=== PATIENT | male | born 1980 | race Caucasian/White ===

== ENCOUNTER 2021-06-23 19:22 | Emergency (ER) | payer OTHER, SELFPAY ==
[2021-06-23 19:26] VITALS: BP 130/65; PULSE 98; RESP 16; TEMP 36.3; O2SAT 97
--- NOTE | 2021-06-23 19:49 | ED.WOUNDLAC ---
HPI - Wound/Laceration General Chief Complaint: Wound/Laceration Stated Complaint: LT HAND INDEX FINGER LACERATION Time Seen by Provider: 06/23/21 19:46 Source: patient and RN notes reviewed Mode of arrival: ambulatory Limitations: no limitations History of Present Illness HPI narrative: Patient presents today with a laceration to his left second finger that was sustained just prior to arrival. He was scraping something with a metal scraper off of his 3D printer and lost his production floater. Denies numbness or tingling. Currently rates his pain 210. He is up-to-date on his tetanus vaccine. Related Data Home Medications Medication Instructions Recorded Confirmed testosterone cypionate 100 mg/mL 100 mg IM WEEKLY ml 02/18/21 04/02/21 intramuscular oil Allergies Allergy/AdvReac Type Severity Reaction Status Date / Time Penicillins Allergy Unknown Anaphylaxis Verified 09/21/18 14:15 cucumber Allergy Unknown Verified 03/18/21 07:33 Review of Systems Review of Systems: CONSTITUTIONAL: Denies body aches, fever, chills, or sweats. EYES: Denies visual changes, redness, or discharge. ENT: Denies rhinorrhea, congestion, sore throat, or otalgia. CARDIOVASCULAR: Denies chest pain, palpitations, or edema. RESPIRATORY: Denies cough or dyspnea. GASTROINTESTINAL: Denies abdominal pain, nausea, vomiting, or diarrhea. GENITOURINARY: Denies dysuria or hematuria. SKIN: Denies rash, itching. + Finger laceration MUSCULOSKELETAL: Denies back pain, joint pain, or myalgia. NEUROLOGIC: Denies headache, numbness, tingling, or weakness. PSYCH: Denies depression or anxiety. [facility] Past Medical History Medical History Ankle tendinitis Anxiety Hyperglycemia Hypertension Hypogonadism in male THERESA (obstructive sleep apnea) Peroneal tendon injury Surgery 09/2020 Family History Family History Mother Patient's mother is in good health Father Family history of cardiovascular disease Cerebrovascular accident Acute myocardial infarction Social History Social History Smoking status: Current some day smoker Tobacco type: cigarettes Alcohol intake: former Comments At time of signature, I have reviewed and agree with nursing past medical, surgical, social and family history unless otherwise noted. Please see nursing chart for further information. There is no relevant family history pertinent to the presenting complaint Exam Narrative: GENERAL: Well-appearing, well-nourished, and in no acute distress. HEAD: Normocephalic, atraumatic. EYES: EOMI. No redness or drainage. Conjunctivae normal. ENT: Mucous membranes pink and moist. NECK: Normal AROM. CHEST: No respiratory distress. EXTREMITIES: Left second finger: 2 cm partial-thickness flap laceration to the palmar aspect of the left second finger, middle phalanx. No active bleeding. Distal sensation intact. Capillary refill normal. Full range of motion against resistance. SKIN: Warm, dry, no rash. Capillary refill normal. Normal skin turgor. NEURO: No focal deficits. Alert and oriented x3. Gait steady. PSYCH: Normal affect. No signs of depression or anxiety. Course Vital Signs Vital signs: Vital Signs Temperature 97.3 F L 06/23/21 19:26 Pulse Rate 98 06/23/21 19:26 Respiratory Rate 16 06/23/21 19:26 Blood Pressure 130/65 06/23/21 19:26 Pulse Oximetry 97 06/23/21 19:26 Temperature 97.3 F L 06/23/21 19:26 Pulse Rate 98 06/23/21 19:26 Respiratory Rate 16 06/23/21 19:26 Blood Pressure 130/65 06/23/21 19:26 Pulse Oximetry 97 06/23/21 19:26 Reviewed. Pt has been instructed to follow up with his PCP regarding his elevated blood pressure today. Procedures Laceration Laceration 1: Date: 06/23/21 Time: 19:55 Site: hand Size (cm): 2
== END 2021-06-23 20:16 | disposition home or self-care (01) ==
PROVIDERS: Emergency Provider Nurse Practitioner; PCP Internal Medicine
DX: S61.211A Laceration without foreign body of left index finger without damage to nail, initial encounter (principal); W45.8XXA Other foreign body or object entering through skin, initial encounter; I10 Essential (primary) hypertension; G47.33 Obstructive sleep apnea (adult) (pediatric); F17.210 Nicotine dependence, cigarettes, uncomplicated
CPT/HCPCS: 12001; 99212; G0463

== ENCOUNTER 2022-09-28 15:59 | Outpatient (CLI) | payer OTHER, SELFPAY ==
[2022-09-28 18:59] LABS: D Dimer 0.49 ug/mL (<0.48)
== END 2022-09-28 16:00 | disposition home or self-care (01) ==
LOC: ANHGOSHLAB 16:00
PROVIDERS: PCP Internal Medicine; Visit Provider Internal Medicine
DX: R00.0 Tachycardia, unspecified (principal); Z82.49 Family history of ischemic heart disease and other diseases of the circulatory system
CPT/HCPCS: 36415; 85380

== ENCOUNTER 2022-12-02 08:56 | Outpatient (CLI) | payer OTHER, SELFPAY ==
[2022-12-02 19:25] LABS: Basophils Percent Auto 0.5 % (0.2-1.2); Eosinophils Absolute Auto 0.3 K/mm3 (0-0.3); Eosinophils Percent Auto 3.8 % (0-4.4); Hematocrit 43.9 % (42.0-52.0); Hemoglobin 14.6 g/dL (14.0-18.0); Immature Granulocyte Absolute 0.04 K/mm3 (0.00-0.031); Immature Granulocyte Percent A 0.6 % (0-0.5); Lymphocytes Absolute Auto 1.74 K/mm3 (0.9-3.2); Lymphocytes Percent Auto 26.8 % (18.3-44.2); Mean Corpuscular HGB Conc 33.3 g/dl (32-36); Mean Corpuscular Hemoglobin 29.1 pg (26-34); Mean Corpuscular Volume 87.5 fl (80-100); Mean Platelet Volume 9.5 fl (7.4-10.4); Monocytes Absolute Auto 0.6 K/mm3 (0.1-0.6); Monocytes Percent Auto 9.7 % (2.6-8.5); Neutrophils Absolute Auto 3.8 K/mm3 (1.3-6.7); Neutrophils Percent Auto 58.6 % (45.5-73.1); Platelet Count Result 344 k/mm3 (150-375); Red Blood Count 5.02 M/mm3 (4.6-6.20); Red Cell Distribution Width 13.2 % (11.5-14.5); White Blood Count 6.5 K/mm3 (4.5-10.0)
[2022-12-02 21:07] LABS: Alanine Aminotransferase 43 U/L (6-50); Albumin Level 4.7 g/dL (3.5-5.1); Alkaline Phosphatase 69 U/L (38-126); Anion Gap 9 mmol/L (8-16); Aspartate Amino Transferase 47 U/L (17-59); Bilirubin,Total 0.5 mg/dL (0.2-1.3); Blood Urea Nitrogen 17 mg/dL (9-20); Calcium 9.2 mg/dL (8.4-10.2); Carbon Dioxide 27 mmol/L (22-30); Chloride 101 mmol/L (98-107); Estimated Glomerular Filt Rate > 60; Glucose 92 mg/dL (65-110); Potassium 4.3 mmol/L (3.4-5.0); Sodium 137 mmol/L (137-145)
[2022-12-02 21:39] LABS: Prostate Specific Antigen 0.3 ng/mL (< OR = 4.0); Thyroid Stimulating Hormone 0.473 uIU/mL (0.465-4.680)
[2022-12-02 21:41] LABS: Hemoglobin A1C 5.8 % (<5.7)
[2022-12-13 16:18] LABS: Testosterone Free 37.6 pg/mL (35.0-155.0); Testosterone Total 192 ng/dL (250-1100)
== END 2022-12-02 08:57 | disposition home or self-care (01) ==
LOC: ANHGOSHLAB 08:57
PROVIDERS: PCP Internal Medicine; Visit Provider Internal Medicine
DX: E29.1 Testicular hypofunction (principal); R73.9 Hyperglycemia, unspecified; D75.1 Secondary polycythemia; I10 Essential (primary) hypertension; R00.2 Palpitations
CPT/HCPCS: 36415; 80053; 83036; 84153; 84402; 84403; 84443; 85025

== ENCOUNTER 2023-05-13 14:35 | Outpatient (CLI) | payer BC, SELFPAY ==
[2023-05-13 19:30] LABS: Basophils Absolute Auto 0.1 K/mm3 (0.0-0.1); Basophils Percent Auto 0.6 % (0.2-1.2); Eosinophils Absolute Auto 0.3 K/mm3 (0-0.3); Eosinophils Percent Auto 3.4 % (0-4.4); Hematocrit 52.6 % (42.0-52.0); Hemoglobin 16.7 g/dL (14.0-18.0); Immature Granulocyte Absolute 0.05 K/mm3 (0.00-0.031); Immature Granulocyte Percent A 0.6 % (0-0.5); Lymphocytes Percent Auto 25.4 % (18.3-44.2); Mean Corpuscular HGB Conc 31.7 g/dl (32-36); Mean Corpuscular Volume 81.8 fl (80-100); Mean Platelet Volume 9.5 fl (7.4-10.4); Monocytes Absolute Auto 1.1 K/mm3 (0.1-0.6); Monocytes Percent Auto 13.2 % (2.6-8.5); Neutrophils Absolute Auto 4.7 K/mm3 (1.3-6.7); Neutrophils Percent Auto 56.8 % (45.5-73.1); Platelet Count Result 379 k/mm3 (150-375); Red Blood Count 6.43 M/mm3 (4.6-6.20); Red Cell Distribution Width 17.6 % (11.5-14.5); White Blood Count 8.3 K/mm3 (4.5-10.0)
[2023-05-13 19:33] LABS: Alanine Aminotransferase 37 U/L (6-50); Albumin Level 4.7 g/dL (3.5-5.1); Alkaline Phosphatase 63 U/L (38-126); Anion Gap 14 mmol/L (8-16); Aspartate Amino Transferase 48 U/L (17-59); Bilirubin,Total 0.7 mg/dL (0.2-1.3); Blood Urea Nitrogen 16 mg/dL (9-20); Calcium 9.4 mg/dL (8.4-10.2); Carbon Dioxide 25 mmol/L (22-30); Chloride 98 mmol/L (98-107); Estimated Glomerular Filt Rate > 60; Glucose 101 mg/dL (65-110); Potassium 3.7 mmol/L (3.4-5.0); Sodium 137 mmol/L (137-145)
[2023-05-13 19:54] LABS: Prostate Specific Antigen 0.4 ng/mL (< OR = 4.0)
[2023-05-13 20:22] LABS: Hemoglobin A1C 5.7 % (<5.7)
[2023-05-18 11:34] LABS: Testosterone Free 117.8 pg/mL (35.0-155.0); Testosterone Total 359 ng/dL (250-1100)
== END 2023-05-13 14:36 | disposition home or self-care (01) ==
LOC: ANHGOSHLAB 14:39
PROVIDERS: PCP Internal Medicine; Visit Provider Internal Medicine
DX: R73.9 Hyperglycemia, unspecified (principal); E61.1 Iron deficiency; D75.1 Secondary polycythemia; E29.1 Testicular hypofunction; Z79.890 Hormone replacement therapy
CPT/HCPCS: 36415; 80053; 83036; 84153; 84402; 84403; 85025

== ENCOUNTER 2023-09-07 15:12 | Outpatient (CLI) | payer BC, SELFPAY ==
[2023-09-07 19:00] LABS: Basophils Percent Auto 0.3 % (0.2-1.2); Eosinophils Absolute Auto 0.3 K/mm3 (0-0.3); Eosinophils Percent Auto 3.6 % (0-4.4); Hemoglobin 17.1 g/dL (14.0-18.0); Immature Granulocyte Absolute 0.01 K/mm3 (0.00-0.031); Immature Granulocyte Percent A 0.1 % (0-0.5); Lymphocytes Absolute Auto 2.05 K/mm3 (0.9-3.2); Lymphocytes Percent Auto 23.6 % (18.3-44.2); Mean Corpuscular HGB Conc 31.7 g/dl (32-36); Mean Corpuscular Hemoglobin 26.2 pg (26-34); Mean Corpuscular Volume 82.7 fl (80-100); Mean Platelet Volume 9.6 fl (7.4-10.4); Monocytes Absolute Auto 0.9 K/mm3 (0.1-0.6); Neutrophils Absolute Auto 5.4 K/mm3 (1.3-6.7); Neutrophils Percent Auto 62.4 % (45.5-73.1); Platelet Count Result 348 k/mm3 (150-375); Red Blood Count 6.53 M/mm3 (4.6-6.20); Red Cell Distribution Width 17.2 % (11.5-14.5); White Blood Count 8.7 K/mm3 (4.5-10.0)
[2023-09-07 19:04] LABS: Alanine Aminotransferase 38 U/L (6-50); Albumin Level 4.6 g/dL (3.5-5.1); Alkaline Phosphatase 78 U/L (38-126); Anion Gap 11 mmol/L (8-16); Aspartate Amino Transferase 48 U/L (17-59); Bilirubin,Total 0.8 mg/dL (0.2-1.3); Blood Urea Nitrogen 14 mg/dL (9-20); Calcium 9.6 mg/dL (8.4-10.2); Carbon Dioxide 26 mmol/L (22-30); Chloride 98 mmol/L (98-107); Cholesterol 143 mg/dL (0-200); Estimated Glomerular Filt Rate > 60; Glucose 89 mg/dL (65-110); HDL Direct 32 mg/dL; Potassium 3.7 mmol/L (3.4-5.0); Sodium 135 mmol/L (137-145); Triglycerides 142 mg/dL (<150)
[2023-09-07 19:15] LABS: LDL Cholesterol Direct 92 mg/dL
[2023-09-11 20:17] LABS: Apolipoprotein B 81 mg/dL (<90)
[2023-09-14 16:46] LABS: Testosterone Free 240.8 pg/mL (35.0-155.0); Testosterone Total 1070 ng/dL (250-1100)
== END 2023-09-07 15:13 | disposition home or self-care (01) ==
PROVIDERS: PCP Internal Medicine; Visit Provider Internal Medicine
DX: R73.9 Hyperglycemia, unspecified (principal); I10 Essential (primary) hypertension; E29.1 Testicular hypofunction; D75.1 Secondary polycythemia; E66.9 Obesity, unspecified; Z68.30 Body mass index [BMI] 30.0-30.9, adult; Z79.890 Hormone replacement therapy
CPT/HCPCS: 36415; 80053; 80061; 82172; 84402; 84403; 85025

== ENCOUNTER 2023-12-14 08:10 | Emergency (ER) | payer BC, SELFPAY ==
--- NOTE | 2023-12-14 08:14 | ED.URI ---
HPI - URI/Sore Throat General Chief Complaint: Upper Respiratory Infection Stated Complaint: Strep Symptoms Time Seen by Provider: 12/14/23 08:13 Source: patient Mode of arrival: ambulatory Limitations: no limitations History of Present Illness HPI Narrative: Patient is a 43-year-old male that presents with sore throat, cough and fever since Wednesday. Patient has taken an ice bath but has not taken any medication for fever. Does take a daily Claritin. Just return from [place]. Denies any nausea, vomiting, diarrhea. Related Data Home Medications Medication Instructions Recorded Confirmed aspirin 325 mg tablet 325 mg PO DAILY 01/01/22 12/14/23 metoprolol succinate 50 mg 50 mg PO DAILY 05/24/23 12/14/23 tablet,extended release 24 hr Allergies Allergy/AdvReac Type Severity Reaction Status Date / Time Penicillins Allergy Unknown Anaphylaxis Verified 12/14/23 08:19 cucumber Allergy Unknown Verified 12/14/23 08:19 Review of Systems Review of Systems: All systems reviewed & are unremarkable except as noted in HPI and below Constitutional: Constitutional: Denies body ache(s), Denies chills, Denies fatigue, Reports fever(s), Denies headache(s), Denies malaise and Denies weakness Eyes: Eyes: Denies blurry vision, Denies itchy eyes and Denies loss of vision ENT: Denies otalgia, Denies headache(s), Denies nasal congestion, Denies sinus pain and Reports sore throat Cardiovascular: Cardiovascular: Denies chest pain, Denies irregular heart rhythm and Denies dyspnea Respiratory: Respiratory: Reports cough and Denies dyspnea Gastrointestinal: Gastrointestinal: Denies abdominal pain, Denies diarrhea, Denies nausea and Denies vomiting Musculoskeletal: Musculoskeletal: Denies back pain, Denies myalgias and Denies arthralgias Integumentary/Breasts: Skin/Breast: Denies pruritus and Denies rash Neurologic: Denies headache(s), Denies loss of vision and Denies weakness Psychiatric: Psychiatric: Reports no additional psychiatric complaints Endocrine: Endocrine: Denies fatigue Allergic/Immunologic: Allergic/Immunologic: Denies itchy eyes PMFSH Past Medical History Medical History Ankle tendinitis Anxiety Hyperglycemia Hypertension Hypogonadism in male Long-term current use of testosterone cypionate THERESA (obstructive sleep apnea) Peroneal tendon injury Surgery 09/2020 Secondary erythrocytosis Family History Family History Mother Acute myocardial infarction Father Family history of cardiovascular disease Cerebrovascular accident Acute myocardial infarction Thyroid cancer Social History Social History Smoking status: Former smoker Tobacco type: cigarettes Smoking end date: 05/28/21 Alcohol intake: former Substance use: current Substance use type: marijuana Lack of Transportation: No Lack of Food: Never True Current Housing: I Have Housing Concerned About Future Housing: No Difficulty Paying Gas/Electric Bills: No Difficulty Paying for Meds: No Currently Unemployed: No Education: Master's Degree or Higher Difficulty w/ Childcare or Family Care: No Comments At time of signature, agree with nursing past medical, surgical, social and family history. There is no relevant family history pertinent to the presenting complaint. Exam Const: General: cooperative, healthy appearing, comfortable, no acute distress and well nourished Nutritional Appearance: well nourished Orientation/consciousness: patient oriented x3 Limitations: no limitations HENMT: Head: normal to inspection, normocephalic and atraumatic Ears: hearing grossly normal bilaterally, external ears normal, TM's normal bilaterally, EAC's normal and no periauricular adenopathy Face/Nose/Sinus: Normal external nose present, Abnormal mucous membranes and turbinat
[2023-12-14 08:21] VITALS: BP 143/83; PULSE 86; RESP 16; TEMP 36.8; O2SAT 96
== END 2023-12-14 09:05 | disposition home or self-care (01) ==
PROVIDERS: Emergency Provider Nurse Practitioner Family; PCP Internal Medicine
DX: J06.9 Acute upper respiratory infection, unspecified (principal); Z20.822 Contact with and (suspected) exposure to COVID-19; Z87.891 Personal history of nicotine dependence; I10 Essential (primary) hypertension; Z79.82 Long term (current) use of aspirin
CPT/HCPCS: 87081; 87426; 87804; 87880; 99213; G0463

== ENCOUNTER 2023-12-29 13:00 | Outpatient (CLI) | payer BC, SELFPAY ==
[2023-12-29 19:23] LABS: Hematocrit 55.8 % (42.0-52.0); Hemoglobin 17.9 g/dL (14.0-18.0); Mean Corpuscular HGB Conc 32.1 g/dl (32-36); Mean Corpuscular Hemoglobin 26.2 pg (26-34); Mean Corpuscular Volume 81.6 fl (80-100); Mean Platelet Volume 9.6 fl (7.4-10.4); Platelet Count Result 371 k/mm3 (150-375); Red Blood Count 6.84 M/mm3 (4.6-6.20); Red Cell Distribution Width 18.7 % (11.5-14.5); White Blood Count 9.5 K/mm3 (4.5-10.0)
[2023-12-29 20:03] LABS: Alanine Aminotransferase 44 U/L (6-50); Alkaline Phosphatase 74 U/L (38-126); Anion Gap 10 mmol/L (4-12); Aspartate Amino Transferase 52 U/L (17-59); Bilirubin,Total 1.2 mg/dL (0.2-1.3); Blood Urea Nitrogen 16 mg/dL (9-20); Calcium 9.5 mg/dL (8.4-10.2); Carbon Dioxide 27 mmol/L (22-30); Chloride 101 mmol/L (98-107); Estimated Glomerular Filt Rate > 60; Glucose 83 mg/dL (65-110); Potassium 4.4 mmol/L (3.4-5.0); Sodium 138 mmol/L (137-145)
[2023-12-29 20:46] LABS: Hemoglobin A1C 5.5 % (<5.7)
[2024-01-01 17:24] LABS: Testosterone Free 169.6 pg/mL (35.0-155.0); Testosterone Total 676 ng/dL (250-1100)
== END 2023-12-29 13:01 | disposition home or self-care (01) ==
LOC: ANHGOSHLAB 13:02
PROVIDERS: PCP Internal Medicine; Visit Provider Internal Medicine
DX: D75.1 Secondary polycythemia (principal); R73.9 Hyperglycemia, unspecified; E29.1 Testicular hypofunction; Z79.890 Hormone replacement therapy
CPT/HCPCS: 36415; 80053; 83036; 84402; 84403; 85027

== ENCOUNTER 2024-08-23 15:29 | Outpatient (CLI) | payer BC, SELFPAY ==
--- OUTSIDE RECORDS SUMMARY | 2024-08-23 17:56 | XMS_ITS | Clinical Summary ---
Author Organization [facility] Address [address] [place] [id number] Care Team Providers Care Canvassing Manager Name Role Phone William Gresham DO Primary Care Provider [phone] Allergies Active Allergy Reactions Criticality Noted Date Comments Penicillin V Anaphylaxis High 09/14/2022 Medications hydroCHLOROthiaz ruben (HYDRODIURIL) 25 MG tablet Take 1 tablet (25 mg total) by mouth daily. 07/20/2022 Active allopurinol (ZYLOPRIM) 100 MG tablet TAKE 1 TABLET BY MOUTH DAILY. DO NOT TAKE DURING ACTIVE GOUT FLARE. 08/03/2022 Active ALPRAZolam (XANAX) 0.5 MG tablet Take 1 tablet (0.5 mg total) by mouth daily as needed. 06/09/2022 Active lisinopril (PRINIVIL) 40 MG tablet Take 1 tablet (40 mg total) by mouth daily. 07/06/2022 Active amLODIPine (NORVASC) 2.5 MG tablet Take 1 tablet (2.5 mg total) by mouth daily. 30 tablet 09/28/2022 Active aspirin 325 MG tablet Take 1 tablet (325 mg total) by mouth daily. Active metoprolol succinate ER (TOPROL-XL) 50 MG 24 hr tablet take 1 tablet by mouth every day 90 tablet 10/07/2023 Active Active Problems No known active problems Immunizations Name Administration Dates Next Due Influenza Adult (Generic) 04/11/2020 Social History Tobacco Use Types Packs/Day Years Used Date Smoking Tobacco: Former Cigarettes Smokeless Tobacco: Never Tobacco Cessation:Counseling Given: Not Answered Alcohol Use Standard Drinks/Week Comments Not Currently 0 (1 standard drink = 0.6 oz pur e alcohol) reports he drank in his past Sex and Gender Information Value Date Recorded Sex Assigned at Not on file Legal Sex Male 4:06 PM CDT Gender Identity Not on file Sexual Orientation Not on file Last Filed Vital Signs Vital Sign Reading Time Taken Comments Blood Pressure 118/74 11/10/2022 2:09 PM CDT Pulse 90 11/10/2022 2:09 PM CDT Temperature 36.1 C (97 F) 09/30/2022 4:59 PM CDT Respiratory Rate 18 09/30/2022 8:02 PM CDT Oxygen Saturation 94% 11/10/2022 2:09 PM CDT Inhaled Oxygen Concentration - - Weight 144.2 kg (318 lb) 11/10/2022 2:09 PM CDT Height 203.2 cm (6' 8 ) 11/10/2022 2:09 PM CDT Body Mass Index 34.93 11/10/2022 2:09 PM CDT Plan of Treatment Health Maintenance Due Date Last Done Comments Annual Physical 1985 PHQ-2 (Physician Snatch that Jerky) 1994 Hepatitis C 2000 DTaP, Tdap and Td Vaccines ( 1 - Tdap) 2001 Hepatitis B Vaccines (1 of 3 - 19+ 3-dose series) 2001 COVID-19 Vaccine (4 - 2023-2 5 season) 2024 03/24/2021, 08/20/2020, 07/29/2020 Influenza Adult (#1) 2024 04/11/2020 PHQ-2 (Physician Snatch that Jerky) 06/28/2024 HPV Vaccines Aged Out No longer eligi ble based on patient's age to complete this topic Meningococcal B Vaccine Aged Out No l onger eligible based on patient's age to complete this topic Meningococcal Vaccine Aged Out No nancy terry eligible based on patient's age to complete this topic Pneumococcal Vaccine: Pediatrics (0 to 5 Years) and At-Risk Patients (6 to 64 Years) Aged Out No longer eligible b ased on patient's age to complete this topic RSV Immunizations Under 20 Months Aged Out No longer eligible b ased on patient's age to complete this topic Insurance [facility] Care Teams Canvassing Manager Relationship Specialty Start Date End Date William Gresham DO [id number] [facility] [address] [place], [place] [id number] PCP - General INTERNAL MEDICINE 09/14/22
[2024-08-23 19:47] LABS: Basophils Percent Auto 0.5 % (0.2-1.2); Eosinophils Absolute Auto 0.3 K/mm3 (0-0.3); Eosinophils Percent Auto 3.6 % (0-4.4); Hematocrit 58.3 % (42.0-52.0); Immature Granulocyte Absolute 0.03 K/mm3 (0.00-0.031); Immature Granulocyte Percent A 0.4 % (0-0.5); Lymphocytes Absolute Auto 2.35 K/mm3 (0.9-3.2); Lymphocytes Percent Auto 28.5 % (18.3-44.2); Mean Corpuscular HGB Conc 32.6 g/dl (32-36); Mean Corpuscular Hemoglobin 28.1 pg (26-34); Mean Corpuscular Volume 86.2 fl (80-100); Mean Platelet Volume 9.6 fl (7.4-10.4); Monocytes Absolute Auto 0.9 K/mm3 (0.1-0.6); Monocytes Percent Auto 10.4 % (2.6-8.5); Neutrophils Absolute Auto 4.7 K/mm3 (1.3-6.7); Neutrophils Percent Auto 56.6 % (45.5-73.1); Platelet Count Result 303 k/mm3 (150-375); Red Blood Count 6.76 M/mm3 (4.6-6.20); Red Cell Distribution Width 17.1 % (11.5-14.5); White Blood Count 8.2 K/mm3 (4.5-10.0)
[2024-08-23 20:38] LABS: Alanine Aminotransferase 42 U/L (6-50); Albumin Level 5.1 g/dL (3.5-5.1); Alkaline Phosphatase 72 U/L (38-126); Anion Gap 13 mmol/L (4-12); Aspartate Amino Transferase 73 U/L (17-59); Bilirubin,Total 1.2 mg/dL (0.2-1.3); Blood Urea Nitrogen 17 mg/dL (9-20); Carbon Dioxide 29 mmol/L (22-30); Chloride 96 mmol/L (98-107); Cholesterol 168 mg/dL (0-200); Estimated Glomerular Filt Rate > 60; Glucose 81 mg/dL (65-110); HDL Direct 31 mg/dL; Potassium 4.6 mmol/L (3.4-5.0); Sodium 138 mmol/L (137-145); Triglycerides 225 mg/dL (<150)
[2024-08-23 20:49] LABS: LDL Cholesterol Direct 92 mg/dL
[2024-08-23 21:06] LABS: Prostate Specific Antigen 0.6 ng/mL (< OR = 4.0)
[2024-08-23 21:37] LABS: Hemoglobin A1C 5.7 % (<5.7)
== END 2024-08-23 15:30 | disposition home or self-care (01) ==
LOC: ANHGOSHLAB 15:31
PROVIDERS: PCP Internal Medicine; Visit Provider Internal Medicine
DX: E29.1 Testicular hypofunction (principal); D75.1 Secondary polycythemia; I10 Essential (primary) hypertension; R73.9 Hyperglycemia, unspecified; Z79.890 Hormone replacement therapy
CPT/HCPCS: 36415; 80053; 80061; 83036; 84153; 84402; 84403; 85025